=== PATIENT | female | born 1980 ===

== ENCOUNTER 2018-05-12 11:30 | Inpatient (IN) | payer OTHER ==
[2018-05-12 11:59] VITALS: BMI 27.4
[2018-05-12] MEDS ORDERED: Lactated Ringer's 1,000 ML IV SCH ×3 (13:00→19:30)
[2018-05-12 13:02] LABS: BASO % 0.4 % (0.0-2.0); EOS # 0.1 K/uL (0.0-0.7); EOS % 0.7 % (0.0-4.0); HEMOGLOBIN 10.8 g/dL (12.0-16.0); LYMPH # 2.1 K/uL (1.0-4.3); LYMPH % 23.7 % (20.0-40.0); MEAN CELL VOLUME 85.2 fl (81.0-99.0); MEAN CORPUSCULAR HEMOGLOBIN 28.5 pg (27.0-31.0); MEAN CORPUSCULAR HGB CONC 33.4 g/dL (33.0-37.0); MEAN PLATELET VOLUME 8.1 fl (7.2-11.7); MONO # 0.6 K/uL (0.0-0.8); MONO % 6.3 % (0.0-10.0); NEUT # 6.2 K/uL (1.8-7.0); NEUT % 68.9 % (50.0-75.0); RBC 3.78 Mil/uL (3.80-5.20); RED CELL DISTRIBUTION WIDTH 14.1 % (11.5-14.5)
[2018-05-12 13:18] LABS: ALB/GLOB RATIO 1.2 (1.0-2.1); ALBUMIN 3.5 g/dL (3.5-5.0); ALT/SGPT 35 U/L (9-52); AST/SGOT 41 U/L (14-36); BILIRUBIN,DIRECT 0.1 mg/ml (0.0-0.4); BLOOD UREA NITROGEN 10 mg/dl (7-17); CALCIUM 9.1 mg/dL (8.4-10.2); GFR NON-AFRICAN AMERICAN > 60
[2018-05-12 13:39] LABS: SQUAMOUS EPITHIAL 1 /hpf (0-5); URINE BILIRUBIN NEGATIVE (NEGATIVE); URINE BLOOD NEGATIVE (NEGATIVE); URINE CLARITY CLEAR (Clear); URINE GLUCOSE (UA) NEG (Normal); URINE LEUKOCYTE ESTERASE NEG Leu/uL (Negative); URINE PROTEIN NEGATIVE (NEGATIVE); URINE UROBILINOGEN 0.2-1.0 mg/dL (0.2-1.0)
[2018-05-12 13:56] LABS: URINE COLOR YELLOW (YELLOW)
--- NOTE | 2018-05-12 16:48 | US ---
Date of service: 05/12/2018 PROCEDURE: Ultrasound of the Kidneys HISTORY: flank pain, patient 25 weeks . COMPARISON: None available. TECHNIQUE: Sonogram of the kidneys. FINDINGS: RIGHT KIDNEY: Measures: 10.6 x 5.9 x 4.8 cm. No obstructing calculus, hydronephrosis, or renal cyst identified. LEFT KIDNEY: Measures: 10.9 x 5.7 x 4.2 cm. No obstructing calculus, hydronephrosis, or renal cyst identified. OTHER FINDINGS: Incomplete distention of the urinary bladder precludes adequate evaluation. IMPRESSION: Unremarkable renal sonogram as above.
[2018-05-12] MEDS ORDERED: Oxycodone/Acetaminophen 5/325 mg Tab PO PRN (19:24)
[2018-05-13] MEDS ORDERED: Lactated Ringer's 1,000 ML IV SCH (08:45)
--- NOTE | 2018-05-13 09:10 | OBADHP ---
Datetime: 05/13/2018 08:59 IP Chief Complaint Other: back, abdominal and epigastric pains/ at 26 wks IP Adm Impression Other: severe back and abdominal pains Admit Comment, IP Provider: Pt came in [place] and was seen in OB Ed renal sono done no hydronephro sis or stones Hydration givne and some improvements but still with pain Started on po pepsid and GI c onsult called secondary to hx of gastritis in pst Started on IV steroids and ampicillin Extremities - PN: Normal Abdomen - PN: Abnormal Back - PN: Abnormal Breast - PN: Not Done Lungs - PN: Normal Neurologic - PN: Normal HEENT - PN: Normal General - PN: Normal FHR - Baseline A Provider: 150 Membranes, Provider: Intact Comments, ACOG Physical Exam: tenderness both lower back areas and also on both CVA Abd soft but [place] in epigastric area Fundus at 25 cm above sp NT Ext no calf tenderness Gestation - Est Wks by US: 25 wks IP Hx Assessment: The History has been Reviewed and is Current IP Chief Complaint: Other NICHD Decel Fetus A IP Provider: None Dilatation, Provider: closed Effacement, Provider: none Genitourinary Exam: Normal DTRs - PN: Normal EGA AdmitDate IP: 26.3 IP Adm Impression: , intrauterine IP Admit Plan: Admit to unit
[2018-05-13] MEDS: Betamethasone Soluspan 30 mg/5mL Inj Susp IM SCH (10:00)
[2018-05-13] MEDS: AMPicillin 1 GM in Sodium Chloride 0.9% 100 ML IV SCH ×3 (10:00→22:00)
[2018-05-14] MEDS: AMPicillin 1 GM in Sodium Chloride 0.9% 100 ML IV SCH ×2 (04:00→09:47)
[2018-05-14] MEDS: Betamethasone Soluspan 30 mg/5mL Inj Susp IM SCH (09:53)
--- NOTE | 2018-05-14 12:20 | OBPN ---
Datetime: 05/14/2018 12:12 IP Progress Plan Other: ortho consult IP Progress Impression Other: still with pains same as yesterday IP Progress Plan: Continue present management Membranes, Provider: Intact Contraction Comments Provider: some irritability but no UC noted FHR - Baseline A Provider: 140 Gestation - Est Wks by US: 26 wks IP Progress Note Comment: Pt still with pains as above but denies UC ROM or bleeding Seen by GI I sp lamont with Dr Hankins who do not believe pain is GI but agreed with antiacids at this time and does n ot think liver/gall bladder problems Since still with pain will get orthopedic opinion and continue f etal monitoring and present management NICHD Variability Prov Fetus A: Minimal - Undetectable to <5bpm Dilatation, Provider: closed NICHD Decel Fetus A IP Provider: None Datetime: 05/13/2018 08:59 Effacement, Provider: none
--- NOTE | 2018-05-14 12:35 | CP.PCM.CON ---
History of Present Illness - History of Present Illness History of Present Illness: 37 yo 24 week gestation admitted with abdominal harris upper and lower abdomen as well as radiating to back. No nausea and vomiting. Prior to his week was feeling well. Review of Systems - Constitutional Constitutional: absent: Chills - EENT Eyes: As Per HPI Nose/Mouth/Throat: absent: Epistaxis - Cardiovascular Cardiovascular: absent: Chest Pain - Respiratory Respiratory: absent: Dyspnea - Gastrointestinal Gastrointestinal: Abdominal Pain - Genitourinary Genitourinary: absent: Change in Urinary Stream Meds Allergies/Adverse Reactions: Allergies Allergy/AdvReac Type Severity Reaction Status Date / Time No Known Allergies Allergy Verified 05/12/18 11:51 - Medications Medications: Current Medications Famotidine (Pepcid) 20 mg PO DAILY [facility] Last Admin: 05/14/18 09:59 Dose: 20 mg Lactated Ringer's (Lactated Ringer's) 1,000 mls @ 125 mls/hr IV .Q8H [facility] Last Admin: 05/14/18 00:00 Dose: 125 mls/hr Oxycodone/Acetaminophen (Percocet 5/325 Mg Tab) 1 tab PO Q4 PRN PRN Reason: Pain, moderate (4-7) Stop: 05/15/18 19:25 Last Admin: 05/12/18 19:47 Dose: 1 tab Physical Exam - Constitutional Appears: Non-toxic - Head Exam Head Exam: ATRAUMATIC - Eye Exam Eye Exam: Normal appearance Pupil Exam: PERRL - ENT Exam ENT Exam: Mucous Membranes Moist - Neck Exam Neck exam: Positive for: Normal Inspection - Respiratory Exam Respiratory Exam: Clear to Auscultation Bilateral - Cardiovascular Exam Cardiovascular Exam: REGULAR RHYTHM, +S1, +S2 - GI/Abdominal Exam GI & Abdominal Exam: Distended, Normal Bowel Sounds. absent: Tenderness Results - Labs Result Diagrams: 05/12/18 12:54 05/12/18 12:54 Assessment & Plan (1) Abdominal pain Assessment and Plan: No specific GI etiology found. Labs and sono are normal. Manage symptomatically. Status: Acute
[2018-05-14 21:45] VITALS: BP 90/76; PULSE 93; RESP 18; TEMP 98.7; O2SAT 93
== END 2018-05-14 16:00 | disposition home or self-care (01) | DRG 781 ==
LOC: H.EROB2 11:30 → H.L&D 05-13 08:41
PROVIDERS: ADMIT Specialist; ATTEND Specialist
PROC: 4A1HXCZ Monitoring of Products of Conception, Cardiac Rate, External Approach (ICD-10-PCS; principal; 2018-05-13)
DX: O26.892 Other specified pregnancy related conditions, second trimester (principal); R10.13 Epigastric pain; Z3A.26 26 weeks gestation of pregnancy

== ENCOUNTER 2018-07-28 05:28 | Inpatient (IN) | payer OTHER ==
[2018-07-28 06:14] VITALS: BMI 28.3
[2018-07-28] MEDS ORDERED: Lactated Ringer's 1,000 ML IV ONE ×4 (06:14→07:26)
[2018-07-28] MEDS ORDERED: Oxytocin 30 UNIT 30 UNITS/500 ML BAG IV ONE (06:21)
[2018-07-28] MEDS ORDERED: OXYTOCIN/0.9 % NS 20 UNIT/1,000 ML BAG IV ONE ×2 (06:21→11:50)
[2018-07-28 06:54] VITALS: O2SAT 100
[2018-07-28 06:54] LABS: BASO % 0.5 % (0.0-2.0); EOS # 0.1 K/uL (0.0-0.7); EOS % 0.7 % (0.0-4.0); HEMOGLOBIN 12.1 g/dL (12.0-16.0); LYMPH # 2.9 K/uL (1.0-4.3); LYMPH % 29.8 % (20.0-40.0); MEAN CELL VOLUME 85.2 fl (81.0-99.0); MEAN CORPUSCULAR HEMOGLOBIN 28.2 pg (27.0-31.0); MEAN CORPUSCULAR HGB CONC 33.1 g/dL (33.0-37.0); MEAN PLATELET VOLUME 8.9 fl (7.2-11.7); MONO # 0.6 K/uL (0.0-0.8); NEUT # 6.1 K/uL (1.8-7.0); RBC 4.31 Mil/uL (3.80-5.20); RED CELL DISTRIBUTION WIDTH 15.3 % (11.5-14.5); WHITE BLOOD COUNT 9.7 K/uL (4.8-10.8)
[2018-07-28] MEDS ORDERED: cefOXitin IV 1 gm in Dextrose 1 GM/50 ML BAG IVPB ONE (07:26)
--- NOTE | 2018-07-28 07:34 | OBADHP ---
Datetime: 07/28/2018 07:27 IP Chief Complaint Other: placenta previa totalis IP Adm Impression Other: placenta previa totalis/multiparity and voluntary sterilization Admit Comment, IP Provider: admitted with placenta previa totalis and had received steroids in past GBS neg Pelvic Type - PN: Not Done Extremities - PN: Normal Abdomen - PN: Abnormal Back - PN: Normal Breast - PN: Not Done Lungs - PN: Normal Heart - PN: Normal Thyroid - PN: Not Done Neurologic - PN: Normal HEENT - PN: Normal General - PN: Normal FHR - Baseline A Provider: 150 Membranes, Provider: Intact Comments, ACOG Physical Exam: Abd soft ND but gravid fundus at term NT Ext no calf tenderness Gestation - Est Wks by US: 37.2 IP Hx Assessment: The History has been Reviewed and is Current Vital Signs Provider: Reviewed IP Chief Complaint: Other NICHD Variability Prov Fetus A: Moderate 6-25bpm NICHD Accel Fetus A IP Provider: 10X10 NICHD Decel Fetus A IP Provider: None Dilatation, Provider: closed DTRs - PN: Normal EGA AdmitDate IP: 37.2 IP Adm Impression: Term, intrauterine IP Admit Plan: Admit to unit; Initiate Section protocol Datetime: 05/14/2018 12:12 Contraction Comments Provider: some irritability but no UC noted
[2018-07-28] MEDS ORDERED: Morphine 1 mg/ml preservative-free Inj(Duramorph) ONE (10:00)
[2018-07-28] MEDS ORDERED: Cellulose Hemostat 2X3 Sheet ONE ×3 (10:56→11:16)
[2018-07-28] MEDS ORDERED: ePHEDrine 50 mg/ml Inj ONE (11:09)
--- NOTE | 2018-07-28 11:41 | OBDS ---
DELIVERY PERSONNEL Delivery Doctor: Jace Sanchez MD Scrub Nurse: Tayler Batres OBT Crop Or Livestock Tenant Farmer: Monse Baxter RN/Mainor Anesthesiologist: Dr Blum MATERNAL INFORMATION Delivery Anesthesia: Spinal Medications in Delivery: pitocin Estimated Blood Loss (ml): 850cc Maternal Complications: Placenta Previa Provider Comments: See surgeon's dict note LABOR SUMMARY EDC: 08/16/2018 00:00 No. Babies in Womb: 1 Attempted: No Labor Anesthesia: None LABOR INFORMATION Reason for Induction: Not Applicable Oxytocin: N/A Group B Beta Strep: Negative Antibiotics # of Doses: Ancef 1 gram Antibiotics Time of Last Dose: Ancef 1 gramIVPB@ 1000 Steroids Given: Full Course; > 24 Hours before Delivery Reason Steroids Not Administered: Not Applicable MEMBRANES Membranes Rupture Method: Artificial Rupture of Membranes: 07/28/2018 10:36 Length of Rupture (hrs): 0.02 Amniotic Fluid Color: Bloody Amniotic Fluid Amount: Moderate Amniotic Fluid Odor: Normal STAGES OF LABOR Stage 3 hrs: 0 Stage 3 min: 1 VAGINAL DELIVERY Episiotomy: None Laceration Extension: N/A Laceration Type: None Sponge Count Correct: Yes Sharps Count Correct: Yes Count Comment: count correct x3 CSECTION DELIVERY Primary Indication: Placenta Previa Other Primary Indication: complete placenta previa Secondary Indication: N/A CSection Urgency: Elective CSection Incidence: Primary Labor: N/A Elective: Elective CSection Incision: Lower Uterine Transverse Sterilization Procedure: Andrew Other Sterilization Procedure: bilateral tubal ligation BABY A INFORMATION Infant Delivery Date/Time: 07/28/2018 10:37 Method of Delivery: Born in Route : No : N/A Forceps: N/A Vacuum Extraction: N/A Shoulder Dystocia : No SHOULDER DYSTOCIA BABY A Delivery Date/Time: 07/28/2018 10:37 PRESENTATION/POSITION BABY A Presentation: Cephalic Cephalic Presentation: N/A Breech Presentation: N/A PLACENTA INFORMATION BABY A Placenta Delivery Time : 07/28/2018 10:38 Placenta Method of Delivery: Expressed Placenta Status: Delivered SCORES BABY A Heart Rate 1 min: >100 bpm Resp Effort 1 min: Good Cry Reflex Irritability 1 min: Cough or Sneeze or Pulls Away Muscle Tone 1 min: Active Motion Color 1 min: Body [place], Extremities Blue Resuscitation Effort 1 min: Tactile Stimulation SCORE 1 MIN: 9 Heart Rate 5 min: >100 bpm Resp Effort 5 min: Good Cry Reflex Irritability 5 min: Cough or Sneeze or Pulls Away Muscle Tone 5 min: Active Motion Color 5 min: Body [place], Extremities Blue Resuscitation Effort 5 min: N/A SCORE 5 MIN: 9 INFANT INFORMATION BABY A Gestational Age at Delivery: 37.2 Gestational Status: Term Outcome : Liveborn Infant Condition : Stable Infant Sex: Male IDENTIFICATION/MEDS BABY A ID Band Number: [id number] ID Band Location: Left Leg; Left Arm Vitamin K Given : Aquamephyton 1 mg IM Erythromycin Given: Given Both Eyes WEIGHT/LENGTH BABY A Infant Birthweight (gms): 2730 Weight (lb): 6 Infant Weight (oz): 0 Infant Length Inches: 19.00 Length cms: 48.3 CORD INFORMATION BABY A No. Cord Vessels: 3 Nuchal Cord : Around Neck x1, Loose Nuchal Cord Other: n/a True Knot: n/a Infant Cord pH Baby Arterial: n/a Cord pH Baby Venous: n/a Cord Blood Taken: Yes Banking/Donate Info: n/a Infant Suction: None ASSESSMENT BABY A Infant Complications: None Physical Findings at Delivery: Within Normal Limits Infant Respirations: Appears Normal Ed Special Education Teacher/ALS Called : No Infant Care By: Dr Bruce/Josue?Mary Transferred To: Remains with Mother
[2018-07-28] MEDS ORDERED: Oxycodone/Acetaminophen 5/325 mg Tab PO PRN (11:45)
[2018-07-28] MEDS ORDERED: OXYTOCIN/0.9 % NS 20 UNIT/1,000 ML BAG IV SCH (15:45)
[2018-07-28] MEDS: cefOXitin IV 1 gm in Dextrose 1 GM/50 ML BAG IVPB SCH (16:31)
[2018-07-28] MEDS ORDERED: cefOXitin IV 1 gm in Dextrose 1 GM/50 ML BAG IVPB SCH (17:00)
[2018-07-29] MEDS: cefOXitin IV 1 gm in Dextrose 1 GM/50 ML BAG IVPB SCH (00:40)
[2018-07-29] MEDS: Multivitamin With Minerals Tab PO SCH (08:04)
[2018-07-29 08:24] LABS: HEMOGLOBIN 10.2 g/dL (12.0-16.0); MEAN CELL VOLUME 84.6 fl (81.0-99.0); MEAN CORPUSCULAR HEMOGLOBIN 28.3 pg (27.0-31.0); MEAN CORPUSCULAR HGB CONC 33.4 g/dL (33.0-37.0); RBC 3.61 Mil/uL (3.80-5.20); RED CELL DISTRIBUTION WIDTH 14.7 % (11.5-14.5); WHITE BLOOD COUNT 11.6 K/uL (4.8-10.8)
[2018-07-29] MEDS ORDERED: Multivitamin With Minerals Tab PO SCH (09:00)
--- NOTE | 2018-07-29 10:56 | OBPPN ---
Datetime: 07/29/2018 10:50 PP Pain Prov: Within normal limits PP Nausea Prov: Denies PP Flatus Prov: Yes PP BM Prov: No PP Breasts Prov: Normal PP Heart Prov: Normal PP Lungs Prov: Normal PP Abdomen/Uterus Prov: Normal PP Lochia Prov: Normal PP Vulva/Perineum Prov: Normal PP CVA Tenderness Prov: Normal PP Extremities Prov: Normal PP C/S Incision Prov: Normal PP Progress Prov: Normal PP Impression Prov: Normal progression PP Plan Prov: Continue present management PP Progress Note Prov: stable pod no complaints advance diet as tolerated may shower [place] th assistance IP PP Procedures: None Vital Signs Provider PP: Reviewed; Within Normal Limits
[2018-07-29] MEDS: Oxycodone/Acetaminophen 5/325 mg Tab PO PRN (15:00)
[2018-07-29] MEDS ORDERED: Silver Sulfadiazine 1% Cream (20 gm) TOP SCH (17:00)
[2018-07-29] MEDS: Silver Sulfadiazine 1% CREAM (50 gm) TOP SCH (17:05)
[2018-07-30] MEDS: Oxycodone/Acetaminophen 5/325 mg Tab PO PRN (05:19)
[2018-07-30] MEDS: Multivitamin With Minerals Tab PO SCH (08:44)
[2018-07-30] MEDS: Silver Sulfadiazine 1% CREAM (50 gm) TOP SCH ×3 (08:49→17:28)
--- NOTE | 2018-07-30 12:12 | OBPPN ---
Datetime: 07/30/2018 12:05 PP Pain Prov: Within normal limits PP Pain Prov comment: No SOB,chest or leg pains PP Nausea Prov: Denies PP Flatus Prov: Yes PP BM Prov: No PP Nausea Prov comment: voiding well PP Breasts Prov: Normal PP Lungs Prov: Normal PP Abdomen/Uterus Prov: Abnormal PP Lochia Prov: Normal PP Vulva/Perineum Prov: Normal PP CVA Tenderness Prov: Normal PP Extremities Prov: Normal PP C/S Incision Prov: Normal PP Progress Prov: Normal PP Comments Phys Exam Prov: breast not engorged and NT; abd soft ND, fundus firm below the umb. Inc ision clean and dry no suppt or discharge prolene in place no sign of infection. Ext no calf tendern ess PP Impression Prov: Normal progression PP Plan Prov: Continue present management PP Progress Note Prov: OOB and ambulation and start on Dulcolax suppt this pm Continue po care and ambulation IP PP Procedures: None Vital Signs Provider PP: Reviewed
[2018-07-30] MEDS ORDERED: Lansinoh for Breast Feeding Mothers TP ONE (12:40)
--- NOTE | 2018-07-31 07:56 | OBPPN ---
Datetime: 07/31/2018 07:51 PP Pain Prov: Within normal limits PP Pain Prov comment: no SOB, chest or leg pains PP Nausea Prov: Denies PP Flatus Prov: Yes PP BM Prov: Yes PP Breasts Prov: Normal PP Lungs Prov: Normal PP Abdomen/Uterus Prov: Abnormal PP Lochia Prov: Normal PP Vulva/Perineum Prov: Normal PP CVA Tenderness Prov: Normal PP Extremities Prov: Normal PP C/S Incision Prov: Normal PP Progress Prov: Normal PP Comments Phys Exam Prov: Breast feeding not engorged; Abd soft ND, fundus firm below the umb. In cision clean and dry no suppt or discharge sutures in place; Ext no calf tenderness PP Impression Prov: Normal progression PP Plan Prov: Discharge PP Progress Note Prov: D/C home with instructions IP PP Procedures: None Vital Signs Provider PP: Reviewed
--- NOTE | 2018-07-31 07:59 | OBDCSUM ---
Datetime: 07/31/2018 07:54 Discharged to, Provider: Home Follow up at, Provider: Dr Sanchez Disch Instr Activity: Bedrest; May be up to bathroom; May be up for meals; May Shower Disch Instr Diet: Regular Discharge Instructions, Provider: Routine instructions given Discharge Diagnosis, Provider: Term Delivered; Placenta Previa Discharge Time: 07/31/2018 07:54 Follow up in weeks, Provider: 1 wk Disch Referrals: None Contraception discussed, Prov: Yes Disch Activity Restrictions: No exercising; No lifting; No driving; Minimize walking; Minimize stair -climbing; No sexual activity; Nothing in vagina - [place], tampons, douche Discharge Comment, Provider: rx for Percocet given and instructions given Continue PNC vit and iron Discharge Diagnosis Prov Other: multiparity/voluntary sterilization Contraception after Delivery: Tubal Ligation
[2018-07-31] MEDS: Silver Sulfadiazine 1% CREAM (50 gm) TOP SCH (09:31)
[2018-07-31] MEDS: Multivitamin With Minerals Tab PO SCH (11:30)
--- NOTE | 2018-07-31 21:41 | OP ---
PROCEDURE DATE: 07/28/2018 PREOPERATIVE DIAGNOSES: 1. at term. 2. Placenta previa partialis. 3. Multiparity and voluntary sterilization. POSTOPERATIVE DIAGNOSES: 1. at term. 2. Fibroid uterus. 3. Nuchal cord x1. PROCEDURES PERFORMED: 1. Primary low transverse segment section. 2. Bilateral tubal sterilization using a modified [place] procedure. SURGEON: Gautam Sanchez MD. PROCESS CONTROL SPECIALIST: Teofilo Basurto MD, who was there for the entire duration of the case. RUBBER SPLICER: None available at this time. Sizer Machine needed in order to position the patient, helping in opening the abdomen, delivery of the baby, and closure of the abdomen. ANESTHESIA USED: Spinal per Dr. Blum. ESTIMATED BLOOD LOSS: 850 mL. DRAINS USED: None. REPLACEMENTS USED: None. FINDINGS: 1. Delivered living baby girl. Baby appears term. Baby cries spontaneously. Carpet Layer attendant. score of 9 and 9. 2. Amniotic fluid clear. 3. Placenta delivered complete and intact, appears to be posterior and total previa. 4. Both tubes and ovaries appear grossly within normal limits to inspection bilaterally. 5. Bilateral tubal sterilization using a modified Andrew procedure performed without any complications. 6. Fibroid, multiple, largest about 3 to 4 cm on the left from the area of the uterus and a smaller fibroid subserosal less than 2 cm. DESCRIPTION OF PROCEDURE: The patient was taken to the operating room and placed on the operating table in a supine position. Following the induction of spinal anesthesia, the patient was then replaced in a supine position. Following this, we then proceeded to place a Small catheter in the bladder. Clear fluid was then evacuated from the bladder. Venodyne boots were applied to both legs and the abdomen was then draped and prepped in a usual sterile manner. After draping and prepping the patient, anesthesia tested and found to be well secured and the Pfannenstiel incision was then made using sharp dissection 2 fingerbreadths above the symphysis pubis. The incision was then extended down to the subcutaneous tissue also using sharp dissection. Hemostasis was obtained by means of electrocoagulation. At this time, we then proceeded to identify the fascia. Fascia was then entered in the midline. Incision of the fascia was then extended laterally on each direction. Rectus muscle was then identified with a slit in the midline exposing the peritoneum. Peritoneal layer was picked up using 2 Cheryl clamps, retracted superiorly and then entered using sharp dissection. Incision of the peritoneum was then extended superiorly and inferiorly under direct visualization. At this time, we then proceeded to identify the bladder, which was then retracted inferiorly using a Shyla retractor. The low transverse segment of the uterus was then identified and the vesiperitoneum covering this area was then entered using sharp dissection. Using blunt dissection, a bladder flap was then created and retracted inferiorly using the same Shyla retractor . At this time, we then proceeded to make an incision in a low transverse segment of the uterus. Upon entering the uterine cavity, clear fluid noted to be present. The incision was then extended laterally in each direction using bandage scissors. Following this, we then proceeded using a manual scooping procedure to deliver a living baby girl, baby appears term. The nuchal cord around the neck undone prior to full delivery. The baby was immediately aspirated using a bulb suction. The baby cried spontaneously. The umbilicus was then doubly clamped and cut, and the baby handled to the pediatric personnel who was standing by. Samples of cord blood were then obtained and the placenta was then delivered complete and intact, which appears to be toto previa and posterior. At this time, the uterus was then exteriorized to provide better visualization. The uterine cavity was then thoroughly cleaned using moist lap pad. Edges of the uterine incision were then secured using multiple T clamps. The uterine cavity was then massaged and the uterus contracted well. At this time, the incision was then approximated using 0 Vicryl suture in a continuous interlocking manner. A second layer was also applied also using 0 Vicryl suture in a continuous manner. Hemostasis checked and found to be well secure. The bladder flap was then approximated using a 2-0 Rapide in a continuous manner. Multiple fibroids noted to be present, one of them were largest about 3 to 4 cm intramural appears on the left fundal area of the uterus and multiple subserosal fibroids scattered on the anterior fundal areas about 2 cm the largest one. Both tubes and ovaries were inspected and appeared to be grossly within normal limits to visual inspection bilaterally. The patient again voiced consent on tubal sterilization. The right fallopian tube was then followed to its fimbriated end using Mccausland clamp was clamped at the ampullary revision. This section of the tube was then ligated using a 2-0 chromic suture passed through a mesosalpinx. A second 2-0 chromic free tie was then placed underneath the ligature and the ligated section of the tube was then resected and sent to Pathology for proper pathological evaluation. Same procedure was then performed on the contralateral side without any complications. Free amniotic fluid and blood were evacuated from the pelvic area. All operative areas checked hemostatically secured and the uterus was then allowed to retract back into its original position. At this time, a small iatrogenic area on the fundal aspect of the wound was noted to be slightly oozing and a [id number] 2-0 chromic suture was then placed and a Surgicel was then placed and hemostatically area was secured. Following this, we then proceeded to again irrigate the pelvic cavity, all operative areas checked hemostatically secure and the parietoperitoneum was then closed using a 0 Vicryl suture in a continuous manner. Fascia was then identified after approximating the rectus muscle at the midline using 0 Vicryl suture and the fascia was then approximated using 1 Vicryl suture in a continuous manner. Fascia was then checked and found to be free of defect. Subcutaneous tissue was then irrigated using saline solution and approximating using two interrupted 2-0 plain suture. The skin was then approximated using a 3-0 Prolene in a subcuticular fashion. Steri-Strips was then applied. The patient tolerated the procedure well. There were no complications. Clear fluid noted to be present in the Small bag. Sponge, instrument, and needle count correct x3. Gautam Sanchez MD
[2018-08-01 01:38] VITALS: BP 117/68; PULSE 81; RESP 20; TEMP 98.1
== END 2018-07-31 14:22 | disposition home or self-care (01) | DRG 785 ==
LOC: H.L&D 05:28 → H.OB/GYN 15:36
PROVIDERS: ADMIT Specialist; ATTEND Specialist
PROC: 0UB70ZZ Excision of Bilateral Fallopian Tubes, Open Approach (ICD-10-PCS; principal; 2018-07-28)
PROC: 10D00Z1 Extraction of Products of Conception, Low, Open Approach (ICD-10-PCS; 2018-07-28)
PROC: 4A1HXCZ Monitoring of Products of Conception, Cardiac Rate, External Approach (ICD-10-PCS; 2018-07-28)
DX: O44.23 Partial placenta previa NOS or without hemorrhage, third trimester (principal); Z3A.37 37 weeks gestation of pregnancy; Z37.0 Single live birth; Z30.2 Encounter for sterilization; O69.81X0 Labor and delivery complicated by cord around neck, without compression, not applicable or unspecified; O34.13 Maternal care for benign tumor of corpus uteri, third trimester